=== PATIENT | male | born 1990 | race Caucasian/White ===

== ENCOUNTER 2022-05-04 11:31 | Emergency (ER) | payer OTHER ==
[2022-05-04 11:41] VITALS: BP 139/91; PULSE 98; RESP 18; TEMP 98; BMI 35.9
[2022-05-04 13:06] LABS: HEMATOCRIT 51.6 % (35.4-49); HEMOGLOBIN 17.3 GM/dL (11.7-16.9); MCH 28.8 pg (25.7-33.7); MCHC 33.5 g/dl (32.0-35.9); MEAN PLT VOLUME 7.4 fl (7.5-11.1); PLATELET COUNT 197 10^3/uL (134-434); RDW 13.4 % (11.9-15.9); WHITE BLOOD COUNT 7.5 K/mm3 (4.0-10.0)
[2022-05-04 13:26] LABS: ALBUMIN 4.1 g/dl (3.4-5.0); BLOOD UREA NITROGEN 17.4 mg/dL (7-18); CALCIUM 8.8 mg/dL (8.5-10.1)
[2022-05-04 13:29] LABS: CREATININE 0.8 mg/dL (0.55-1.3)
[2022-05-04 13:31] LABS: BILIRUBIN,TOTAL 0.7 mg/dL (0.2-1); TOT PROT 7.4 g/dl (6.4-8.2)
[2022-05-04 13:43] LABS: EPI CELLS 1 /uL (0-25.1); HYALINE CASTS 0 /uL (0-3.1); URINE APPEARANCE CLEAR; URINE BACTERIA 2 /uL (0-1359); URINE BILIRUBIN NEGATIVE (NEGATIVE); URINE COLOR YELLOW; URINE GLUCOSE (UA) NEGATIVE (NEGATIVE); URINE KETONE TRACE (NEGATIVE); URINE LEUK ESTERASE NEGATIVE (NEGATIVE); URINE NITRITE NEGATIVE (NEGATIVE); URINE PROTEIN TRACE (NEGATIVE); URINE RBC 32 /uL (0-23.9); URINE UROBILINOGEN 0.2 mg/dL (0.2-1.0); URINE WBC 3 /uL (0-25.8)
== END 2022-05-04 14:05 | disposition home or self-care (01) ==
LOC: JERFT 11:31
DX: B04 Monkeypox (principal)
CPT/HCPCS: 36415; 80053; 81003; 85027; 86780; 87086; 87491; 87529; 87591; 87593; 99283-25